=== PATIENT | female | born 1985 | race Two or more races ===

== ENCOUNTER 2024-01-20 19:35 | Emergency (ER) | payer OTHER ==
[~2024-01-20] VITALS: Ht 157.5 cm; Wt 73.9 kg
[2024-01-20] MEDS ORDERED: ABILIFY10 MG (19:59)
[2024-01-20] MEDS ORDERED: FOLIC ACID20 MG (20:00)
[2024-01-20] MEDS ORDERED: PRENATAL + DHA1 EAC1 (20:00)
[2024-01-20] MEDS ORDERED: ALL DAY ALLERGY10 MG PO (20:00)
[2024-01-20 20:55] LABS: HEMATOCRIT 32.3 % (36.0-45.00); MEAN CORPUSCULAR HEMOGLOBIN 29.7 pg (27.00-32.0); MEAN CORPUSCULAR HGB CONC 34.1 g/dl (32.0-36.0); PLATELET COUNT 225 K/uL (150-450); RED BLOOD COUNT 3.71 M/uL (4.00-6.00); RED CELL DISTRIBUTION WIDTH 13.9 % (11.5-14.5)
[2024-01-20 20:57] LABS: PH,URINE 5.5 (5.0-8.0); URINE APPEARANCE Clear; URINE BILIRRUBIN Negative (NEGATIVE); URINE BLOOD Small; URINE COLOR Yellow; URINE GLUCOSE Negative (NEGATIVE); URINE KETONE Negative (NEGATIVE); URINE LEUKOCYTE Trace; URINE NITRATE Negative; URINE PROTEIN Negative (NEGATIVE); URINE UROBILINOGEN 0.2 E.U./dl
[2024-01-20 21:01] LABS: URINE BACTERIA 439.7 uL (0.0-1933); URINE EPITHELIAL CELLS 20.8 uL (0.0-38.8); URINE WBC 13.9 uL (0.0-23.2)
[2024-01-20 21:08] LABS: URINE CAST 0.15 uL (0.0-1.40); URINE RBC 1.5 uL (0.0-20.8)
== END 2024-01-20 23:15 | disposition home or self-care (01) ==
LOC: ER 19:36
PROVIDERS: Emergency Medicine
DX: O20.8 Other hemorrhage in early pregnancy (principal); Z3A.08 8 weeks gestation of pregnancy